=== PATIENT | female | born 1995 | race Caucasian/White ===

== ENCOUNTER → 2020-10-25 10:10 | Outpatient (CLI) | payer MEDICAID ==
[2020-07-02 09:28] VITALS: BMI 48.5
[~2020-10-25 10:10] MED LIST: NAPROSYN500 MG PO
== END | disposition home or self-care (01) ==
LOC: D.US 10:10
PROVIDERS: ATTEND Obstetrics & Gynecology
DX: Z30.46 Encounter for surveillance of implantable subdermal contraceptive (principal)